=== PATIENT | male | born 1955 | race Caucasian/White ===

== ENCOUNTER 2021-02-28 06:43 | Outpatient (CLI) | payer MEDICARE, SELFPAY ==
--- NOTE | ~2021-02-28 | MR_ITS ---
EXAMINATION: MR knee RT wo con DATE: 02/28/2021 07:57 INDICATION: Anterior right knee pain TECHNIQUE: Magnetic resonance imaging (MRI) of the right knee was performed without intravenous contr ast. Sequences included coronal PD-weighted FSE, coronal PD-weighted FS FSE, sagittal T2-weighted FS E, sagittal PD-weighted FS FSE, axial T1-weighted FSE and axial PD weighted fat saturated FSE. COMPARISON: None. FINDINGS: Medial compartment: Complex tear of the posterior horn of the medial meniscus which includes truncation of the anterior t hird of the medial side of the posterior horn with a medially flipped meniscal flap extending cephala d from the junction of the body and posterior horn. Small region of partial-thickness chondral fissur ing without degenerative subchondral changes along the lateral margin of the anterior weightbearing m edial femoral condyle. Lateral compartment: Lateral meniscus is normal. Deep chondral fissuring at the central to posterior aspect of the lateral tibial plateau. Patellofemoral compartment: Partial-thickness chondral ulceration and deep fissuring at the medial patellar facet and cephalad as pect of the apical ridge where there is underlying increased marrow signal and developing cystlike ch anges. Additional deep chondral fissuring with underlying cortical irregularity and developing cystli ke changes at the inferior aspect of the medial trochlea. Ligaments and tendons: Posterior cruciate ligament is normal. There is increased signal extending along the intact appearing ligament fibers of the anterior cruciate ligament which follows a normal course resulting in a simil ar stock appearance consistent with mucoid degeneration without discrete tear. The medial collateral ligament and fibular collateral ligament complex are normal. The extensor mechanism is normal. Modera te fatty atrophy of indeterminate etiology of the distal semimembranosus muscle belly. The semimembra nosus tendon as well as the remaining visualized portions of the medial and lateral hamstring tendons and the iliotibial band are normal. Fluid: Physiologic amount of fluid in the joint space. No loose osteochondral bodies identified. There is a multilobulated intramuscular ganglion cyst within the distal medial head of the gastrocnemius which m easures 3.7 x 2.5 x 1.8 cm. This arises from a very small Parks's cyst. Osseous/other: Normal marrow signal. No fracture or pathologic marrow replacing process. IMPRESSION: 1. Complex medial meniscal tear including a displaced meniscal flap. 2. 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 3. Mucoid degeneration of the anterior cruciate ligament without discrete tear. 4. Moderate fatty atrophy of the visualized distal semimembranosus muscle belly which is of indetermi yobany etiology with normal appearing tendon. 5. Intramuscular multilobulated 3.7 x 2.5 x 1.8 cm ganglion cyst within the medial head of the gastro cnemius. Reviewed, dictated and finalized at location B. R IMPRESSION: 1. Complex medial meniscal tear including a displaced meniscal flap. 2. 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 3. Mucoid degeneration of the anterior cruciate ligament without discrete tear. 4. Moderate fatty atrophy of the visualized distal semimembranosus muscle belly which is of indeterminate etiology with normal appearing tendon. 5. Intramuscular multilobulated 3.7 x 2.5 x 1.8 cm ganglion cyst within the med ial head of the gastrocnemius.
== END 2021-02-28 06:44 | disposition home or self-care (01) ==
LOC: ANHIMG 06:48
PROVIDERS: PCP Emergency Medicine; Visit Provider Nurse Practitioner
DX: M17.11 Unilateral primary osteoarthritis, right knee (principal); S83.231A Complex tear of medial meniscus, current injury, right knee, initial encounter; X58.XXXA Exposure to other specified factors, initial encounter; M71.21 Synovial cyst of popliteal space [Baker], right knee
CPT/HCPCS: 73721

== ENCOUNTER 2021-04-19 07:57 | Outpatient (CLI) | payer MEDICARE, SELFPAY ==
--- NOTE | 2021-04-19 08:00 | ECG_ITS ---
Measurements Intervals [place] Rate: 63 P: -11 SD: 184 QRS: -5 QRSD: 113 T: 20 QT: 373 QTc: 384 Interpretive Statements SINUS RHYTHM BASELINE ARTIFACT- I, II, AVR NORMAL ECG Electronically Signed On 04-19-2021 8:28:40 VALUATION MANAGER by Alec Stephenson D.O.
[2021-04-19 08:32] LABS: Anion Gap 6 mmol/L (8-16); Blood Urea Nitrogen 15 mg/dL (9-20); Calcium 9.5 mg/dL (8.4-10.2); Carbon Dioxide 34 mmol/L (22-30); Chloride 98 mmol/L (98-107); Estimated Glomerular Filt Rate > 60; Glucose 144 mg/dL (65-110); Potassium 4.2 mmol/L (3.4-5.0); Sodium 138 mmol/L (137-145)
== END 2021-04-19 07:58 | disposition home or self-care (01) ==
PROVIDERS: Anesthesiology; PCP Emergency Medicine; Visit Provider Orthopaedic Surgery
DX: Z01.818 Encounter for other preprocedural examination (principal); E78.00 Pure hypercholesterolemia, unspecified; E11.9 Type 2 diabetes mellitus without complications; I45.9 Conduction disorder, unspecified
CPT/HCPCS: 36415; 80048; 93005

== ENCOUNTER 2021-04-25 00:56 | Day surgery (SDC) | payer MEDICARE, SELFPAY ==
[2021-04-17 15:06] VITALS: BMI 30.8
--- NOTE | 2021-04-17 15:11 | PC.NURSE ---
Report to the Outpatient Waiting Room, entrance under the green pavilion located off [facility], at time _1000 on date __04/25/21 . OR Time: ___1200 . - You and your visitor will be asked a series of questions to screen for COVID 19 for your protection. - A mask is required within the hospital. - Only one visitor is allowed at this time. Patient visitors will be guided where to wait when not with patient. Preoperative COVID Testing Requirements: No COVID Test needed if: (proof is required; if not received patient will have Rapid Test prior to entry) - Patient has received COVID Vaccine at least 14 days prior to procedure date or - Patient has positive COVID test result within last 90 days of surgery date. COVID Test needed if above criteria is not met If not COVID vaccinated a COVID test must be conducted within 72 hours of surgery and patient is asked to isolate self from time of testing until procedure. You will go to the [facility] for your COVID testing. The [facility] Testing site is located at the corner of [address] [facility]. You will only be called if COVID results are positive and your surgeon may reschedule your elective surgery date. Patients may have clear liquids (water, carbonated beverages, clear teas, apple juice) until 3 hours prior to surgery with a maximum of 20 ounces. - No food from midnight until time of surgery - Infants may have breast milk until 4 hours before surgery, infant formula 6 hours prior to surgery. - Children will be allowed to drink immediately following surgery. If applicable, please bring a bottle or sippy cup to assist with drinking. Juice, water, soda, and popsicles are readily available. For infants on formula, please bring formula the day of surgery. Pacifiers are allowed. Take the following medications with a SIP of water the morning of surgery: _BUPROPION Medications to discontinue per physician NONE Date to take last dose Please no make-up, nail yakut, hairspray, perfume, deodorant, or body powder the day of surgery. No jewelry (including any body piercings) or valuables the day of surgery, leave them at home. Please take a shower or bath the night before, or the morning of, surgery with an antibacterial soap. Wear comfortable, loose fitting clothing. Children are encouraged to wear pajamas. - Jewelry must be removed prior to entering the operating room. Rings and piercings that are not removed may be cut off. - The hospital will not accept responsibility for valuables. - Please leave all valuables, including medications, at home the day of surgery. If you are going home after surgery, a licensed hazmat cdl a driver must drive you home. - NO public transportation without another adult. - We recommend that an adult stay with you for 24 hours following discharge. - We also recommend that you do not drive, make important decision, drink alcoholic beverages, or take any drugs that were not prescribed by your health care provider for at least 24 hours after your discharge time. For Pediatric surgeries, we recommend two adults accompany the child home (only one inside the building at this time). Follow any additional instructions given to you from your surgeon. Telephone instructions given to __PATIENT and asked if any additional questions and then verbalized understanding. Patient advised to call surgeon office or pre surgery nurse liaison [phone] if any additional questions.
[2021-04-25] VITALS (8 sets, daily range): BP systolic 130–168; BP diastolic 70–97; PULSE 77–88; RESP 12–20; TEMP 36.2–36.4; O2SAT 96–100
--- NOTE | 2021-04-25 13:34 | WPDHPUPDATE1 ---
History and Physical Update Update Date/Time: 04/25/21 13:34 History and Physical has been reviewed, including an updated exam of the patient. There are NO changes in the patient's condition. Risks, benefits, and alternatives have been discussed and questions answered. Patient agrees to proceed with procedure.
[2021-04-25] MEDS: ACETAMINOPHEN 500 MG TABLET 1000 MG PO (14:23)
[2021-04-25] MEDS: LACTATED RINGERS 1,000 ML 30 ML IV CONT (14:46)
[2021-04-25 14:47] LABS: Glucose Point of Care 123 mg/dl (65-105)
--- NOTE | 2021-04-25 14:56 | WPDANESEPPF ---
Anes - Initial Pre Proc Eval Procedure: Operation Date: 04/25/21 15:30 Proposed Procedures p Right Knee Arthroscopy, Medial Meniscectomy - Carlos Mcgill MD Date/Time: 04/25/21 14:56 Surgeon: Carlos Mcgill MD Pre Op Diagnosis: right medial meniscal tear Patient Data Age: 66 Gender: M Height: 1.68 m Weight: 86.65 kg Allergies Allergy/AdvReac Type Severity Reaction Status Date / Time No Known Allergies Allergy Verified 04/17/21 14:49 Home Medications Medication Instructions Recorded Confirmed Type aspirin 81 mg tablet,delayed 81 mg PO DAILY 01/18/21 04/25/21 History release atorvastatin 20 mg tablet 20 mg PO HS 01/18/21 04/25/21 History bupropion HCl 150 mg 24 hr tablet, 150 mg PO QAM 01/18/21 04/25/21 History extended release celecoxib 200 mg capsule 200 mg PO BID 01/18/21 04/25/21 History metformin 500 mg tablet 500 mg PO DAILY 01/18/21 04/25/21 History omeprazole [Prilosec] 20 mg PO DAILY 04/17/21 04/25/21 History Laboratory Tests 04/25/21 14:45 POC Capillary Glucose 123 mg/dl H mg/dl (65-105) Patient hx anesthesia problems: post op nausea/vomiting Family hx anesthesia problems: none Results Review: All pre-operative results and documents have been reviewed as part of the pre-operative evaluation. [facility] Past Medical History Medical History Arthritis Diabetes Hemoglobin A1c less than 7.0% per pt, on 11-01-20 A1C = 6.1 Hyperlipidemia FELIX (obstructive sleep apnea) Surgical History Surgical History History of arthroscopy of left knee partial meniscectomy 2009 Family History Family History Father Heart disease Mother Heart disease Lung cancer Social History Social History Smoking status: Never smoker Alcohol intake: never Living arrangements: with family Gender identity (if verbalized by the patient): Male Spiritual care concerns: No Anes - Eval Final PreProcedure Day of Procedure 04/25/21 14:56 Patient weight: obese Heart: regular rate and rhythm Lungs: clear to auscultation Airway: Mallampati scale class II Neurological: alert and oriented Last oral intake: >/= 8 hours ASA classification: III Emergent: no Anesthetic plan: proceed Anesthesia type and monitoring: general LMA and standard monitoring Results Review: All pre-operative results and documents have been reviewed as part of the pre-operative evaluation. Informed Consent: The patient's anesthetic plan and its attendant risks and benefits were discussed with the patient/family/POA. Questions were solicited and answers provided to the satisfaction of the patient/family/POA.
[2021-04-25] MEDS: KETOROLAC 15 MG/ML VIAL (*BKC) IV PUSH (15:00)
[2021-04-25] MEDS: SCOPOLAMINE 1.5 MG PATCH TRANSDERM (15:13)
[2021-04-25] MEDS: ceFAZolin 2 GM/D5W 50 ML 2 GM/50 ML BAG IVPB (15:28)
--- NOTE | 2021-04-25 16:27 | P.OP_ITS ---
Procedure Note - Detailed Date of Procedure 04/25/21 Pre-op Diagnosis right medial meniscal tear Post-op Diagnosis same Procedure Performed Right knee arthroscopy, partial medial meniscectomy Surgeon Carlos Mcgill MD Anesthesia general Description of Procedure The patient was identified and proper site identified and he was taken to the operating room, transferred to the OR table placing her supine taking care to pad the torso and extremities. After general anesthetic induction and intubation, a nonsterile tourniquet was placed high on the right thigh but was not inflated. The right lower extremity was positioned, prepped and draped in usual sterile fashion. 10 cc of 1% lidocaine was injected into the subcutaneous tissue in the area of the portals at start of the procedure, and an additional 10 at the end. The portals were established and the arthroscopy was carried out. Articular cartilage in the anterior medial compartments had extensive grade 2 and three changes. Early grade 3 changes noted in the lateral compartment centrally on the tibial plateau. Lateral meniscus was in continuity . Anterior posterior cruciate ligaments were in continuity but slightly attenuated. There was a complex tear of the medial meniscus posterior horn into the midbody. This was debrided to stable rim with basket forceps and shaver. The knee was flushed with a copious amount of arthroscopic fluid and equipment was removed. Portals were closed with three O nylon suture and a sterile dressing was applied. He tolerated the procedure well, was awakened, extubated and taken to recovery area in stable condition. There were no known intraoperative complications. Estimated blood loss was negligible; he received perioperative antibiotics. Estimated Blood Loss 15 Tourniquet Time 0 Drains No Packing No Pathology none sent Complications No immediate complications Condition stable Disposition PACU
[2021-04-25 16:56] LABS: Glucose Point of Care 124 mg/dl (65-105)
[2021-04-25] MEDS: ONDANSETRON INJ 4 MG/2 ML VIAL IV PUSH (17:44)
== END 2021-04-25 18:35 | disposition home or self-care (01) ==
PROVIDERS: PCP Emergency Medicine; Visit Provider Orthopaedic Surgery
PROC: (CPT 29870; principal; 2021-04-25 15:30)
DX: M23.321 Other meniscus derangements, posterior horn of medial meniscus, right knee (principal); E11.9 Type 2 diabetes mellitus without complications; E78.5 Hyperlipidemia, unspecified; G47.33 Obstructive sleep apnea (adult) (pediatric); Z79.84 Long term (current) use of oral hypoglycemic drugs; Z79.82 Long term (current) use of aspirin
CPT/HCPCS: 29881; 36415; 80048; 82948; 93005; A9270; J0690; J1100; J1885; J2250; J2405; J2704; J3010; J7120

== ENCOUNTER 2021-06-05 10:30 | Outpatient (RCR) | payer MEDICARE, SELFPAY ==
--- NOTE | 2021-05-02 09:37 | PTOPEVAL ---
Thank you for referring Titi Briones to [facility].? The patient is scheduled to be seen for therapy? 2 x/week for 5 weeks. Please review, sign, date and return this plan of care OSMANY. I agree with and certify that the following plan of care is medically necessary. Referring Physician Date Attending Provider: Carlos Mcgill MD Referring Provider: Carlos Mcgill MD Diagnosis right knee arthroscopic surgery Onset 04/25/21 Additional Evaluation Detail s/p partial medial meniscectomy 1 flight of steps to bedroom Subjective Information He had been having issues with Query Text:As Reported By Patient/ his knee for ~ 1yr with Family progression of his symptoms. He was walking 2 1/2 miles a day when his knee started hurting. He reports limitations with walking, steps, squatting, normal daily task. He c/o increased swelling of knee with use of ice and Ibuprofen. Reports the pain has been improving the past few days. Pain Assessment Right Knee(s) Reported Pain Level 1 Pain Description Aching,Tightness Pain Frequency Acute,Continuous Lowest Pain Intensity 1 Greatest Pain Intensity 8 Pain Aggravating Factors ADL's,Bending,Exercise/ Activity,Prolonged Position, Stair Climbing,Walking,Weight Bearing/Standing Lower Extremity Range of Motion General Lower Extremity Range of Motion Gross Lower Extremity Range of Motion right knee:-5 to 82 dg Comments Lower Extremity Muscle Strength Testing Hip Strength Right Hip Flexion Strength 4- Good - Hip Extension Strength 3 Fair Hip Abduction Strength 3 Fair Knee Strength Right Knee Flexion Strength 3 Fair Knee Extension Strength 4- Good - Posture Posture Standing Position Weight Distribution Weight Shifted Left,Decreased Wt.Bear on (R) Hip Posture (R) Externally Rotated Knee Posture (L) Genu Recurvatum,(R) Excess Flexion Palpation Assessment Palpation Palpation bandaides on healing incisions , no drainaged noted tenderness with tightness of quad muscles, no tenderness of right knee j
--- NOTE | 2021-05-04 08:54 | PCPTNOTE ---
Patient called & cancelled scheduled appointment this date due to his brother passing away last night.
--- NOTE | 2021-06-05 11:13 | PTOPEVAL ---
Physical Therapy Discharge Summary Thank you for referring Titi Briones Jr. to [facility].? Titi has attended 9 therapy visits to address his LE impairments from his surgery. He has been instructed in a HEP and demonstrates indep and compliance. He has achieved maximal potential with skilled therapy services at this time. Will DC skilled PT services with recommendations for Titi to cont with his HEP for strengthening. Please review, sign, date and return this discharge summary OSMANY. I agree with and certify that the following plan of care is medically necessary. Referring Physician Date Attending Provider: Carlos Mcgill MD Referring Provider: Carlos Mcgill MD Diagnosis right knee arthroscopic surgery Onset 04/25/21 Additional Evaluation Detail s/p partial medial meniscectomy 1 flight of steps to bedroom Subjective Information He reports he is able to Query Text:As Reported By Patient/ perform all of his normal Family activities. He does have increased soreness with walking and increased household activities. He is walking <1 mile daily. Pain Assessment Right Knee(s) Reported Pain Level 0 Pain Frequency Intermittent Lowest Pain Intensity 0 Greatest Pain Intensity 1 Pain Aggravating Factors Walking Lower Extremity Range of Motion General Lower Extremity Range of Motion Gross Lower Extremity Range of Motion right knee:0-125 dg Lower Extremity Muscle Strength Testing Hip Strength Right Hip Flexion Strength 5 Normal Hip Extension Strength 4 Good Hip Abduction Strength 3+ Fair + Knee Strength Right Knee Flexion Strength 5 Normal Knee Extension Strength 5 Normal Palpation Assessment Palpation Palpation tenderness right knee distal medial healed incision with min tissue restrictions. Extremity Circumference Assessment Circumference Assessment Location Right Body Part Knee Site Descriptor ([place]) inf patella Circumference (cm) 36 Noninvolved Side Circumference (cm) 34 Circumference Comments mid patella: 39 cm, left: 39 cm sup patella: 40 cm, left: 39 cm Balance Assessment Time Up Go (TUG) Timed Up and Go Test (TUG) (Seconds) 8 Assistive Devices None Comments no pain 5 Time Sit to Stand Time in Seconds 10 5 Time Sit to Stand Comments = LE WB with movement, without Query Text:Normative Data: If Greater UE support
== END 2021-06-05 15:12 | disposition home or self-care (01) ==
LOC: ANHPT 10:30
PROVIDERS: PCP Emergency Medicine; Referring Provider Orthopaedic Surgery; Visit Provider Orthopaedic Surgery
DX: M25.561 Pain in right knee (principal); G89.29 Other chronic pain
CPT/HCPCS: 97110; 97140; 97162; 97530